=== PATIENT | female | born 1935 ===

== ENCOUNTER 2018-03-20 14:03 | Emergency (ER) | payer MEDICARE, OTHER ==
--- NOTE | 2018-03-20 15:46 | C.PDOC ---
History Of Present Illness 82 years old female with PMHx of osteoporosis, arthritis, asthma, bulging discs, and chronic/ frequent sinus infection, presents to ED for complaints of right sided greater than left throat, face, and sinuses pain associated with runny nose and chills that began yesterday. Patient reports experiencing abdominal pain and diarrhea yesterday but denies any today. Denies fever, cough or any other complaints. Allergies: * Ibuprofen * Penicillins * Sulfa PMD: * Dr. Berenice Berrios (As per patient, Last seen was months ago). Time Seen by Provider: 03/20/18 15:31 Chief Complaint (Nursing): ENT Problem History Per: Patient History/Exam Limitations: None Onset/Duration Of Symptoms: Days (1) Current Symptoms Are (Timing): Still Present Quality (Mouth/Throat): Tenderness Symptoms Have Been: Continuous Anticoagulant/Antiplatlet Use?: Unknown Recent Aspirin Use: Unknown Past Medical History Reviewed: Historical Data, Nursing Documentation, Vital Signs Vital Signs: Last Vital Signs Temp 98.5 F 03/20/18 14:35 Pulse 70 03/20/18 14:35 Resp 18 03/20/18 14:35 BP 153/73 H 03/20/18 14:35 Pulse Ox 94 L 03/20/18 14:35 - Medical History PMH: Anxiety, Arthritis, Asthma, Depression, Hypercholesterolemia, Osteoporosis Family History: States: Unknown Family Hx - Social History Hx Tobacco Use: No Hx Alcohol Use: No Hx Substance Use: No - Immunization History Hx Tetanus Toxoid Vaccination: No Hx Influenza Vaccination: No Hx Pneumococcal Vaccination: No Review Of Systems Constitutional: Positive for: Chills, Other (Face pain Right side greater than left ). Negative for: Fever ENT: Positive for: Nose Pain (Right side greater than left ), Nose Discharge, Throat Pain (Right side greater than left ), Other (Sinuses pain Right side greater than left ) Gastrointestinal: Positive for: Abdominal Pain, Diarrhea. Negative for: Nausea, Vomiting Skin: Negative for: Rash Neurological: Negative for: Weakness, Numbness Physical Exam - Physical Exam Appears: Non-toxic, No Acute Distress Skin: Normal Color, Warm, Dry, No Rash, Other (Skin tag on right side of nose ) Head: Atraumatic, Normacephalic Eye(s): bilateral: Conjunctiva Pale Oral Mucosa: Moist Teeth: Other (Missing many teeth. No obvious signs of decay. ) Throat: Normal, No Erythema, No Exudate, No Drooling, No Mass Neck: Normal ROM, Supple Chest: Symmetrical, No Tenderness Cardiovascular: Rhythm Regular, No Murmur Respiratory: Normal Breath Sounds, No Rales, No Rhonchi, No Wheezing Gastrointestinal/Abdominal: Bowel Sounds (Active ), Soft, No Tenderness, No Distention Back: Normal Inspection, No CVA Tenderness Extremity: Normal ROM Extremity: Bilateral: Atraumatic, Normal Color And Temperature, Normal ROM Pulses: Left Radial: Normal, Right Radial: Normal Neurological/Psych: Oriented x3, Normal Speech Gait: Steady ED Course And Treatment - Laboratory Results Result Diagrams: 03/20/18 16:12 03/20/18 16:12 O2 Sat by Pulse Oximetry: 94 (RA) Medical Decision Making Medical Decision Making: Plan: * IV Fluids * CXR * Blood gas * Blood work * EKG * Urinalysis * Blood culture * Urine Culture Disposition Counseled Patient/Family Regarding: Diagnosis, Need For Followup, Rx Given - Disposition Referrals: Sudhakar Leal MD [Staff Provider] - Disposition: HOME/ ROUTINE Disposition Time: 17:18 Condition: IMPROVED Additional Instructions: Follow up with your doctor without fail. You must see an ENT (ear, nose throat doctor) as soon as possible. Prescriptions: Acetaminophen with Codeine [Tylenol with Codeine No. 3 300 mg-30 mg] 1 tab PO TID #6 tab Clindamycin [Cleocin] 1 cap PO QID #30 cap Instructions: Sinusitis, Adult (DC) Forms: [facility] (Slovenian), Gen Discharge Inst Slovenian - POA Present On Arrival: None - Clinical Impression Clinical Impression: Sinusitis - Scribe Statement The provider has reviewed the documentation as recorded by the Scribe Shanthi Krishnamurthy All medical record entries made by the Scribe were at my direction and personally dictated by me. I have reviewed the chart and agree that the record accurately reflects my personal performance of the history, physical exam, medical decision making, and the department course for this patient. I have also personally directed, reviewed, and agree with the discharge instructions and disposition.
[2018-03-20] MEDS ORDERED: Clindamycin 300 MG in Sodium Chloride 0.9% 50 ML IVPB STA (15:47)
[2018-03-20 16:15] LABS: BASO # 0.1 K/uL (0.0-0.2); BASO % 0.8 % (0.0-2.0); EOS # 0.2 K/uL (0.0-0.7); EOS % 1.7 % (0.0-4.0); LYMPH # 2.5 K/uL (1.0-4.3); LYMPH % 25.7 % (20.0-40.0); MEAN CELL VOLUME 87.6 fL (81.0-99.0); MEAN CORPUSCULAR HEMOGLOBIN 29.5 pg (27.0-31.0); MEAN CORPUSCULAR HGB CONC 33.7 g/dL (33.0-37.0); MEAN PLATELET VOLUME 8.5 fL (7.2-11.7); MONO # 0.8 K/uL (0.0-0.8); NEUT # 6.2 K/uL (1.8-7.0); NEUT % 63.8 % (50.0-75.0); RBC 4.08 Mil/uL (3.80-5.20); RED CELL DISTRIBUTION WIDTH 13.5 % (11.5-14.5); WHITE BLOOD COUNT 9.7 K/uL (4.8-10.8)
[2018-03-20 16:20] LABS: VENOUS BLOOD GAS BASE EXCESS 5.5 mmol/L (0.0-2.0); VENOUS BLOOD GAS PCO2 51 mmHg (40-60); VENOUS BLOOD GAS PO2 23 mm/Hg (30-55)
[2018-03-20 16:27] LABS: ALB/GLOB RATIO 1.4 (1.0-2.1); ALBUMIN 4.3 g/dL (3.5-5.0); ALT/SGPT 15 U/L (9-52); AST/SGOT 22 U/L (14-36); BLOOD UREA NITROGEN 18 mg/dL (7-17); CALCIUM 9.5 mg/dl (8.6-10.4); GFR NON-AFRICAN AMERICAN > 60
[2018-03-20 16:40] LABS: B-TYPE NATRIURETIC PEPTIDE 109 pg/mL (0-900)
[2018-03-20 16:43] LABS: SQUAMOUS EPITHIAL 3 /hpf (0-5); URINE BACTERIA RARE (<OCC); URINE BILIRUBIN NEGATIVE (NEGATIVE); URINE BLOOD NEGATIVE (NEGATIVE); URINE CLARITY Clear (Clear); URINE COLOR Yellow (YELLOW); URINE GLUCOSE (UA) NORMAL (Normal); URINE LEUKOCYTE ESTERASE TRACE Leu/uL (Negative); URINE PROTEIN NEGATIVE (NEGATIVE)
[2018-03-20] MEDS ORDERED: Acetaminophen-Codeine 300/30 mg Tab PO STA (16:48)
[2018-03-20] MEDS ORDERED: Acetaminophen-Codeine 300/30 mg Tab PO ONE (16:54)
[2018-03-20 17:31] VITALS: BP 191/90; PULSE 74; RESP 20; TEMP 98.2; O2SAT 96
--- NOTE | 2018-03-20 18:13 | RAD ---
Date of service: 03/20/2018 HISTORY: Sepsis Patient COMPARISON: 04/30/2015 FINDINGS: LUNGS: No active pulmonary disease. PLEURA: No significant pleural effusion identified, no pneumothorax apparent. CARDIOVASCULAR: No aortic atherosclerotic calcification present. Normal cardiac size. No pulmonary vascular congestion. OSSEOUS STRUCTURES: Thoracic levoscoliosis. No acute fracture. VISUALIZED UPPER ABDOMEN: Normal. OTHER FINDINGS: None. IMPRESSION: No active disease.
== END 2018-03-20 17:39 | disposition home or self-care (01) ==
LOC: C.ER 14:03
DX: J32.9 Chronic sinusitis, unspecified (principal)

== ENCOUNTER 2018-03-29 20:28 | Emergency (ER) | payer MEDICARE, OTHER ==
--- NOTE | 2018-03-29 22:16 | C.PDOC ---
History Of Present Illness 82 year old female presents to the ED c/o abdominal pain associated with nausea. Patient reports symptoms started after she took Clindamycin that was prescribed to her for sinusitis 2 weeks ago. Patient also states having decreased PO intake. Patient denies fever, chills, diarrhea, constipation, rash, recent travel, sick contacts. Time Seen by Provider: 03/29/18 22:15 Chief Complaint (Nursing): Abdominal Pain History Per: Patient History/Exam Limitations: no limitations Onset/Duration Of Symptoms: Days Current Symptoms Are (Timing): Still Present Context: Other Location Of Pain/Discomfort: Diffuse Quality Of Discomfort: "Pain" Associated Symptoms: Nausea, Vomiting, Loss Of Appetite. denies: Diarrhea, Urinary Symptoms Recent travel outside of the [place]: No Additional History Per: Patient Abnormal Vaginal Bleeding: No Past Medical History Reviewed: Historical Data, Nursing Documentation, Vital Signs Vital Signs: Last Vital Signs Temp 98.9 F 03/29/18 20:44 Pulse 72 03/29/18 20:44 Resp 14 03/29/18 20:44 BP 189/66 H 03/29/18 20:44 Pulse Ox 97 03/29/18 20:44 - Medical History PMH: Anxiety, Arthritis, Asthma, Depression, Hypercholesterolemia, Osteoporosis Surgical History: No Surg Hx Family History: States: Unknown Family Hx - Social History Hx Tobacco Use: No Hx Alcohol Use: No Hx Substance Use: No - Immunization History Hx Tetanus Toxoid Vaccination: No Hx Influenza Vaccination: No Hx Pneumococcal Vaccination: No Review Of Systems Constitutional: Negative for: Fever, Chills Cardiovascular: Negative for: Chest Pain, Palpitations Respiratory: Negative for: Cough, Shortness of Breath Gastrointestinal: Positive for: Nausea, Vomiting, Abdominal Pain. Negative for: Diarrhea Skin: Negative for: Rash Neurological: Negative for: Weakness, Numbness, Headache Physical Exam - Physical Exam Appears: Non-toxic, No Acute Distress Skin: Warm, Dry Head: Normacephalic Eye(s): bilateral: Normal Inspection Oral Mucosa: Moist Neck: Supple Chest: Symmetrical Cardiovascular: Rhythm Regular Respiratory: No Rales, No Rhonchi, No Wheezing Gastrointestinal/Abdominal: Soft, No Tenderness, Distention, No Guarding, No Rebound, Other (tympanic to percussion) Extremity: Bilateral: Atraumatic, Normal Color And Temperature, Normal ROM Neurological/Psych: Oriented x3, Normal Speech, Normal Cognition Gait: Steady ED Course And Treatment - Laboratory Results Result Diagrams: 03/29/18 22:20 03/29/18 22:20 O2 Sat by Pulse Oximetry: 97 (ON RA) Pulse Ox Interpretation: Normal Progress Note: Plan: - Labs. - IV fluids. - UA Reevaluation Time: 23:18 Reassessment Condition: Improved Medical Decision Making Medical Decision Making: Upon provider reevaluation patient is feeling better, is medically stable, and requires no further treatment in the ED at this time. Patient will be discharged home with Rx for zofran. Counseling was provided and all questions were answered regarding diagnosis and need for follow up with dr mcclure. There is agreement to discharge plan. Return if symptoms persist or worsen. Disposition Counseled Patient/Family Regarding: Studies Performed, Diagnosis, Need For Followup - Disposition Referrals: Berenice Berrios MD [Medical Doctor] - Disposition: HOME/ ROUTINE Disposition Time: 22:16 Condition: FAIR Additional Instructions: Please return if symptoms recur Prescriptions: Ondansetron ODT [Zofran ODT] 1 odt PO BID PRN #6 odt PRN Reason: Nausea/Vomiting Instructions: Adverse Drug Reactions, Adult (DC) Forms: [facility] (Upper Sorbian) - Clinical Impression Clinical Impression: Nausea, Medication side effect - Scribe Statement The provider has reviewed the documentation as recorded by the Scribe Sawyer Parrish All medical record entries made by the Scribe were at my direction and personally dictated by me. I have reviewed the chart and agree that the record accurately reflects my personal performance of the history, physical exam, m edical decision making, and the department course for this patient. I have also personally directed, reviewed, and agree with the discharge instructions and disposition.
[2018-03-29] MEDS ORDERED: Sodium Chloride 0.9% 1,000 ML IV ONE (22:18)
[2018-03-29 22:34] LABS: BASO # 0.1 K/uL (0.0-0.2); BASO % 0.6 % (0.0-2.0); EOS # 0.1 K/uL (0.0-0.7); EOS % 0.8 % (0.0-4.0); HEMOGLOBIN 12.3 g/dL (11.0-16.0); LYMPH # 3.2 K/uL (1.0-4.3); LYMPH % 29.9 % (20.0-40.0); MEAN CELL VOLUME 86.9 fL (81.0-99.0); MEAN CORPUSCULAR HEMOGLOBIN 29.5 pg (27.0-31.0); MEAN CORPUSCULAR HGB CONC 33.9 g/dL (33.0-37.0); MEAN PLATELET VOLUME 9.2 fL (7.2-11.7); MONO % 9.7 % (0.0-10.0); NEUT # 6.3 K/uL (1.8-7.0); NRBC % 0.1 % (0.0-2.0); RBC 4.19 Mil/uL (3.80-5.20); RED CELL DISTRIBUTION WIDTH 13.5 % (11.5-14.5); WHITE BLOOD COUNT 10.7 K/uL (4.8-10.8)
[2018-03-29 22:42] LABS: INR 1.2; PROTHROMBIN TIME 12.7 SECONDS (9.7-12.2)
[2018-03-29 22:43] LABS: ALB/GLOB RATIO 1.5 (1.0-2.1); ALBUMIN 4.5 g/dL (3.5-5.0); ALT/SGPT 16 U/L (9-52); AST/SGOT 26 U/L (14-36); BLOOD UREA NITROGEN 10 mg/dL (7-17); CALCIUM 9.5 mg/dl (8.6-10.4); GFR NON-AFRICAN AMERICAN > 60; LIPASE 208 U/L (23-300)
[2018-03-29] MEDS ORDERED: Sodium Chloride 0.9% 1,000 ML ONE (22:43)
[2018-03-29 23:02] LABS: SQUAMOUS EPITHIAL 1 /hpf (0-5); URINE BACTERIA RARE (<OCC); URINE BILIRUBIN NEGATIVE (NEGATIVE); URINE BLOOD NEGATIVE (NEGATIVE); URINE CLARITY Clear (Clear); URINE COLOR Straw (YELLOW); URINE GLUCOSE (UA) NORMAL (Normal); URINE LEUKOCYTE ESTERASE NEG Leu/uL (Negative); URINE PROTEIN NEGATIVE (NEGATIVE); URINE UROBILINOGEN NORMAL mg/dL (0.2-1.0)
[2018-03-29 23:43] VITALS: BP 160/81; PULSE 76; RESP 20; TEMP 98.4; O2SAT 96
== END 2018-03-29 23:48 | disposition home or self-care (01) ==
LOC: C.ER 20:28
DX: R11.0 Nausea (principal); T36.8X5A Adverse effect of other systemic antibiotics, initial encounter
CPT/HCPCS: 80053; 81001; 83690; 85025; 85610; 85730; 96360; 99284; J7030

== ENCOUNTER 2018-06-04 14:29 | Emergency (ER) | payer MEDICARE, OTHER ==
[2018-06-04 15:00] VITALS: BMI 21.4
[2018-06-04 15:03] VITALS: TEMP 98.2; O2SAT 98
[2018-06-04] MEDS ORDERED: Aluminum Hydroxide/Magnesium Hydroxide Susp (30 mL) PO STA (15:52)
[2018-06-04] MEDS ORDERED: Sodium Chloride 0.9% 1,000 ML IV SCH (16:00)
[2018-06-04] MEDS ORDERED: Sodium Chloride 0.9% 1,000 ML ONE (16:34)
[2018-06-04] MEDS ORDERED: Aluminum Hydroxide/Magnesium Hydroxide Susp (30 mL) ONE (16:34)
[2018-06-04 16:35] LABS: BASO # 0.1 K/uL (0.0-0.2); BASO % 1.1 % (0.0-2.0); EOS # 0.2 K/uL (0.0-0.7); EOS % 1.8 % (0.0-4.0); HEMOGLOBIN 11.6 g/dL (11.0-16.0); LYMPH # 2.1 K/uL (1.0-4.3); LYMPH % 23.7 % (20.0-40.0); MEAN CORPUSCULAR HEMOGLOBIN 29.5 pg (27.0-31.0); MEAN CORPUSCULAR HGB CONC 33.5 g/dL (33.0-37.0); MEAN PLATELET VOLUME 8.8 fL (7.2-11.7); MONO # 0.7 K/uL (0.0-0.8); MONO % 8.4 % (0.0-10.0); NEUT # 5.7 K/uL (1.8-7.0); NRBC % 0.1 % (0.0-2.0); RBC 3.94 Mil/uL (3.80-5.20); RED CELL DISTRIBUTION WIDTH 13.5 % (11.5-14.5); WHITE BLOOD COUNT 8.7 K/uL (4.8-10.8)
[2018-06-04] MEDS ORDERED: Iohexol 350mg/ml 100 ML ONE (16:40)
[2018-06-04 17:10] LABS: ALB/GLOB RATIO 1.7 (1.0-2.1); ALBUMIN 4.5 g/dL (3.5-5.0); ALT/SGPT 8 U/L (9-52); AST/SGOT 24 U/L (14-36); BLOOD UREA NITROGEN 13 mg/dL (7-17); CALCIUM 9.4 mg/dl (8.6-10.4); GFR NON-AFRICAN AMERICAN > 60; LIPASE 191 U/L (23-300)
--- NOTE | 2018-06-04 18:01 | CT ---
Date of service: 06/04/2018 PROCEDURE: CT Abdomen and Pelvis with contrast HISTORY: LLQ tenderness COMPARISON: None. TECHNIQUE: Contrast dose: 100 mL Visipaque 320 Radiation dose: Total exam DLP = 246.31 mGy-cm. This CT exam was performed using one or more of the following dose reduction techniques: Automated exposure control, adjustment of the mA and/or kV according to patient size, and/or use of iterative reconstruction technique. FINDINGS: LOWER THORAX: Minimal bilateral lower lobe subsegmental atelectasis. LIVER: Unremarkable. No gross lesion or ductal dilatation. GALLBLADDER AND BILE DUCTS: Unremarkable. PANCREAS: Unremarkable. No gross lesion or ductal dilatation. SPLEEN: Unremarkable. ADRENALS: Unremarkable. No mass. KIDNEYS AND URETERS: Unremarkable. No hydronephrosis. No solid mass. VASCULATURE: Unremarkable. No aortic aneurysm. There is atherosclerotic calcification of the abdominal aorta. BOWEL: No bowel obstruction. Mild retained stool in the colon. No abnormal bowel loops. APPENDIX: Normal appendix. PERITONEUM: Minimal fluid in cul-de-sac, nonspecific. LYMPH NODES: Unremarkable. No enlarged lymph nodes. BLADDER: Unremarkable. REPRODUCTIVE: Unremarkable postmenopausal uterus. 2.6 cm right ovarian cyst common nonspecific. Correlate with transvaginal pelvic ultrasound examination. BONES: Superior vertebral endplate compression deformity of L2, L3 and L4 vertebral bodies of indeterminate chronicity. OTHER FINDINGS: None. IMPRESSION: 2.6 cm right ovarian cyst. Correlate with pelvic ultrasound preferably transvaginal. Minimal fluid in cul-de-sac common nonspecific. Mild retained stool superior vertebral endplate compression deformity of L2 through L4 vertebrae, age indeterminate.
[2018-06-04 18:30] LABS: SQUAMOUS EPITHIAL 1 /hpf (0-5); URINE BILIRUBIN NEGATIVE (NEGATIVE); URINE BLOOD NEGATIVE (NEGATIVE); URINE CLARITY Clear (Clear); URINE COLOR Yellow (YELLOW); URINE GLUCOSE (UA) NORMAL (Normal); URINE LEUKOCYTE ESTERASE 3+ Leu/uL (Negative); URINE PROTEIN NEGATIVE (NEGATIVE); URINE UROBILINOGEN NORMAL mg/dL (0.2-1.0)
[2018-06-04 18:42] VITALS: BP 147/79; PULSE 74; RESP 16
--- NOTE | 2018-06-04 21:17 | C.PDOC ---
History Of Present Illness 83 y/o female presents to the ED complaining of epigastric pain for the past few days. States she has history of reflux, and the pain moves up to her throat when lying down. Associated with some nausea, but no vomiting. No fever, chills, urinary complaints, or changes in bowel movements. Patients appetite has been normal. Time Seen by Provider: 06/04/18 15:45 Chief Complaint (Nursing): GI Problem History Per: Patient History/Exam Limitations: no limitations Onset/Duration Of Symptoms: Days Current Symptoms Are (Timing): Still Present Location Of Pain/Discomfort: Epigastric Additional History Per: Family Abnormal Vaginal Bleeding: No Past Medical History Reviewed: Historical Data, Nursing Documentation, Vital Signs Vital Signs: Last Vital Signs Temp 98.2 F 06/04/18 18:41 Pulse 74 06/04/18 18:41 Resp 16 06/04/18 18:41 BP 147/79 06/04/18 18:41 Pulse Ox 98 06/04/18 18:41 - Medical History PMH: Anxiety, Arthritis, Asthma, Depression, Hypercholesterolemia, Osteoporosis Surgical History: No Surg Hx Family History: States: Unknown Family Hx - Social History Hx Tobacco Use: No Hx Alcohol Use: No Hx Substance Use: No - Immunization History Hx Tetanus Toxoid Vaccination: No Hx Influenza Vaccination: No Hx Pneumococcal Vaccination: No Review Of Systems Except As Marked, All Systems Reviewed And Found Negative. Constitutional: Negative for: Fever, Chills ENT: Positive for: Throat Pain Respiratory: Negative for: Cough, Shortness of Breath Gastrointestinal: Positive for: Nausea, Abdominal Pain (epigastric). Negative for: Vomiting, Diarrhea, Constipation Genitourinary: Negative for: Dysuria, Frequency, Hematuria Neurological: Negative for: Weakness, Dizziness Physical Exam - Physical Exam Appears: Non-toxic, No Acute Distress Skin: Warm, Dry Head: Atraumatic, Normacephalic Eye(s): bilateral: Normal Inspection, PERRL, EOMI Oral Mucosa: Moist Throat: Normal, No Erythema, No Exudate Neck: Normal ROM Chest: Symmetrical Cardiovascular: Rhythm Regular, No Murmur Respiratory: Normal Breath Sounds, No Rales, No Rhonchi, No Wheezing Gastrointestinal/Abdominal: Soft, Tenderness (to the LLQ), No Guarding, No Rebo und Back: No CVA Tenderness Extremity: Bilateral: Atraumatic, Normal Color And Temperature, Normal ROM Pulses: Left Dorsalis Pedis: Normal, Right Dorsalis Pedis: Normal Neurological/Psych: Oriented x3, Normal Speech ED Course And Treatment - Laboratory Results Result Diagrams: 06/04/18 16:28 06/04/18 16:28 Lab Results: Troponin I < 0.0120 ng/mL (0.00-0.120) 06/04/18 16:28 Total Bilirubin 0.4 mg/dL (0.2-1.3) 06/04/18 16:28 AST 24 U/L (14-36) 06/04/18 16:28 ALT 8 U/L (9-52) L D 06/04/18 16:28 Alkaline Phosphatase 63 U/L (38-126) 06/04/18 16:28 Total Protein 7.2 g/dL (6.3-8.3) 06/04/18 16:28 Albumin 4.5 g/dL (3.5-5.0) 06/04/18 16:28 Globulin 2.7 gm/dL (2.2-3.9) 06/04/18 16:28 Albumin/Globulin Ratio 1.7 (1.0-2.1) 06/04/18 16:28 Lipase 191 U/L (23-300) 06/04/18 16:28 Urine Color Yellow (YELLOW) 06/04/18 18:13 Urine Clarity Clear (Clear) 06/04/18 18:13 Urine pH 7.0 (5.0-8.0) 06/04/18 18:13 Ur Specific [place] 1.019 (1.003-1.030) 06/04/18 18:13 Urine Protein Negative mg/dL (NEGATIVE) 06/04/18 18:13 Urine Glucose (UA) Normal mg/dL (Normal) 06/04/18 18:13 Urine Ketones Negative mg/dL (NEGATIVE) 06/04/18 18:13 Urine Blood Negative (NEGATIVE) 06/04/18 18:13 Urine Nitrate Negative (NEGATIVE) 06/04/18 18:13 Urine Bilirubin Negative (NEGATIVE) 06/04/18 18:13 Urine Urobilinogen Normal mg/dL (0.2-1.0) 06/04/18 18:13 Ur Leukocyte Esterase 3+ Chemo/uL (Negative) H 02/08/19 18:13 Urine WBC (Auto) 60 /hpf (0-5) H 06/04/18 18:13 Urine RBC (Auto) < 1 /hpf (0-3) 06/04/18 18:13 Ur Squamous Epith Cells 1 /hpf (0-5) 06/04/18 18:13 ECG: Interpreted By Me, Viewed By Me ECG Rhythm: Sinus Rhythm ECG Interpretation: No Acute Changes Rate From EC O2 Sat by Pulse Oximetry: 98 (RA) Pulse Ox Interpretation: Normal - CT Scan/US CT Abdomen/Pelvis Other Rad Studies (CT/US): Read By Radiologist, Radiology Report Reviewed CT/US Interpretation: Accession No. : [id number]. Patient Name / ID : SHAHID MIKE / [id number]. Exam Date : 06/04/2018 17:33:04 ( Approved ). Study Comment : Sex / Age : F / 83Y. Creator : Fito Ryan MD. Dictator : Fito Ryan MD. Clerical Car Checker : Lead Sprinkler : Fito Ryan MD. Approver2 : Report Date : 06/04/2018 17:57:31. My Comment : . Date of service: 06/04/2018. PROCEDURE: CT Abdomen and Pelvis with contrast. HISTORY: LLQ tenderness. COMPARISON: None. TECHNIQUE: Contrast dose: 100 mL Visipaque 320. Radiation dose: Total exam DLP = 246.31 mGy-cm. This CT exam was performed using one or more of the following dose reduction techniques: Automated exposure control, adjustment of the mA and/or kV according to patient size, and/or use of iterative reconstruction technique. FINDINGS: LOWER THORAX: Minimal bilateral lower lobe subsegmental atelectasis. LIVER: Unremarkable. No gross lesion or ductal dilatation. GALLBLADDER AND BILE DUCTS: Unremarkable. PANCREAS: Unremarkable. No gross lesion or ductal dilatation. SPLEEN: Unremarkable. ADRENALS: Unremarkable. No mass. KIDNEYS AND URETERS: Unremarkable. No hydronephrosis. No solid mass. VASCULATURE: Unremarkable. No aortic aneurysm. There is atherosclerotic calcification of the abdominal aorta. BOWEL: No bowel obstruction. Mild retained stool in the colon. No abnormal bowel loops. APPENDIX: Normal appendix. PERITONEUM: Minimal fluid in cul-de-sac, nonspecific. LYMPH NODES: Unremarkable. No enlarged lymph nodes. BLADDER: Unremarkable. REPRODUCTIVE: Unremarkable postmenopausal uterus. 2.6 cm right ovarian cyst common nonspecific. Correlate with transvaginal pelvic ultrasound examination. BONES: Superior vertebral endplate compression deformity of L2, L3 and L4 vertebral bodies of indeterminate chronicity. OTHER FINDINGS: None. IMPRESSION: 2.6 cm right ovarian cyst. Correlate with pelvic ultrasound preferably transvaginal. Minimal fluid in cul-de-sac common nonspecific. Mild retained stool superior vertebral endplate compression deformity of L2 through L4 vertebrae, age indeterminate. Medical Decision Making Medical Decision Making: Initial Plan: - CMP - Lipase - Troponin I - CBC - UA - Urine culture - IV fluids - 4 mg IV Zofran - 20 mg IV Pepcid - 30 ml PO Maalox - CT Abdomen/Pelvis with IV contrast Progress: Labs reviewed. CT findings discussed with patient. On re-evaluation patient now states she has mild dysuria. Plan is to discharge patient home with rx for Cipro and Pepcid, advised follow up with PMD Disposition - Disposition Referrals: Lazaro Espinosa, [Non-Staff] - Disposition: HOME/ ROUTINE Disposition Time: 17:00 Condition: GOOD Additional Instructions: CEE WATT, thank you for letting us take care of you today. The emergency medical care you received today was directed at your acute symptoms. If you were prescribed any medication, please fill it and take as directed. It may take several days for your symptoms to resolve. Return to the Emergency Department if your symptoms worsen, do not improve, or if you have any other problems. Please contact your doctor or call one of the physicians/clinics you have been referred to that are listed on the Patient Visit Information form that is included in your discharge packet. Bring any paperwork you were given at [facility] with you along with any medications you are taking to your follow up visit. Our treatment cannot replace ongoing medical care by a primary care provider outside of the emergency department. Thank you for allowing the [facility] team to be part of your care today. Follow up with your primary care doctor in 2-3 days for re-evaluation and further management. Prescriptions: Ciprofloxacin [Cipro] 500 mg PO BID #10 tab Famotidine [Pepcid] 20 mg PO BID #14 tab Instructions: Urinary Tract Infection, Adult (DC) Forms: [facility] (Turkish) - Clinical Impression Clinical Impression: UTI (urinary tract infection) - Scribe Statement The provider has reviewed the documentation as recorded by the Kendrickibshahid Razo Provider Attestation: All medical record entries made by the Tarah were at my direction and personally dictated by me. I have reviewed the chart and agree that the record accurately reflects my personal performance of the history, physical exam, medical decision making, and the department course for this patient. I have also personally directed, reviewed, and agree with the discharge instructions and disposition.
== END 2018-06-04 19:19 | disposition home or self-care (01) ==
LOC: C.ER 14:29
DX: N39.0 Urinary tract infection, site not specified (principal); E78.00 Pure hypercholesterolemia, unspecified; M81.0 Age-related osteoporosis without current pathological fracture
CPT/HCPCS: 74177; 80053; 81001; 83690; 84484; 85025; 87086; 87181; 96374; 96375; 99284; J2405; J7030; Q9967

== ENCOUNTER 2018-09-02 10:41 | Outpatient (CLI) | payer MEDICARE, OTHER | END 2018-09-02 10:42 | disposition home or self-care (01) | LOC: C.RADH 10:41 | DX: J44.9 Chronic obstructive pulmonary disease, unspecified (principal) ==